=== PATIENT | male | born 1990 | race Caucasian/White ===

== ENCOUNTER 2018-06-27 20:44 | Emergency (ER) | payer MEDICAID ==
[~2018-06-27] VITALS: Ht 660.3 cm; Wt 81.0 kg
[~2018-06-27 20:44] MED LIST: ALBU6.7H INH; HYDR1TAB PO; NORCO10T PO; ONDA4TAB59 PO; OXYC-658 PO; VAL5T PO
[2018-06-27] MEDS ORDERED: penicillin V potassium 500mg tablet PO ONE (22:20)
[2018-06-27] MEDS ORDERED: PENI500T2 PO (22:20)
[2018-06-27 22:26] VITALS: BP 131/66
== END 2018-06-27 22:27 | disposition home or self-care (01) ==
LOC: ER 20:44
DX: J02.9 Acute pharyngitis, unspecified (principal); G89.29 Other chronic pain; Z79.899 Other long term (current) drug therapy
CPT/HCPCS: 99283

== ENCOUNTER 2018-07-06 11:59 | Emergency (ER) | payer MEDICAID ==
[~2018-07-06] VITALS: Ht 190.5 cm; Wt 90.1 kg
[~2018-07-06 11:59] MED LIST changes: +PENI500T2 PO
[2018-07-06 12:12] VITALS: BP 118/73
== END 2018-07-06 12:31 | disposition home or self-care (01) ==
LOC: ER 12:00
DX: Z00.00 Encounter for general adult medical examination without abnormal findings (principal); G89.29 Other chronic pain; M54.9 Dorsalgia, unspecified
CPT/HCPCS: 99281

== ENCOUNTER 2019-08-22 00:20 | Emergency (ER) | payer MEDICAID, OTHER ==
[~2019-08-22] VITALS: Ht 180.3 cm; Wt 93.0 kg
[~2019-08-22 00:20] MED LIST changes: -ALBU6.7H INH; +ALBU6.7H9 INH; -PENI500T2 PO
[2019-08-22 00:29] VITALS: BP 134/84
[2019-08-22] MEDS ORDERED: ketorolac trometh inj. 60 MG/2 ML VIAL IM ONE (01:00)
== END 2019-08-22 01:38 | disposition home or self-care (01) ==
LOC: ER 00:21
DX: K02.9 Dental caries, unspecified (principal); K03.81 Cracked tooth; Z79.899 Other long term (current) drug therapy
CPT/HCPCS: 96372; 99283; J1885

== ENCOUNTER 2020-08-12 12:10 | Emergency (ER) | payer MEDICAID ==
[~2020-08-12] VITALS: Ht 193 cm; Wt 90.9 kg
[2020-08-12 12:12] VITALS: BP 125/83
[2020-08-12] MEDS ORDERED: DEXA6TAB6 PO (12:57)
[2020-08-12] MEDS ORDERED: AZIT-63 PO (12:57)
== END 2020-08-12 13:15 | disposition home or self-care (01) ==
LOC: ER 12:11
DX: J20.9 Acute bronchitis, unspecified (principal); G89.29 Other chronic pain; M54.9 Dorsalgia, unspecified; J98.01 Acute bronchospasm; Z20.828 Contact with and (suspected) exposure to other viral communicable diseases
CPT/HCPCS: 36415; 87635; 99283; C9803

== ENCOUNTER 2020-12-12 14:43 | Emergency (ER) | payer MEDICAID ==
[~2020-12-12] VITALS: Ht 193 cm; Wt 84.1 kg
[~2020-12-12 14:43] MED LIST changes: +DEXA6TAB6 PO; +DIAZ5TAB22 PO; -VAL5T PO
[2020-12-12 14:54] VITALS: BP 125/78
[2020-12-12] MEDS ORDERED: CefTRIAXone 1000mg IM Kit (w/lidocaine diluent) IM ONE (15:00)
[2020-12-12 15:35] LABS: CLARITY,URINE CLOUDY (Clear); COLOR,URINE YELLOW (Yellow); GLUCOSE, URINE NEGATIVE (Neg); KETONES,URINE NEGATIVE (Neg); LEUKOCYTE ESTERASE ,URINE SMALL (Neg); NITRITES, URINE NEGATIVE (Neg); OCCULT BLOOD,URINE TRACE-INTACT (Neg); PROTEIN,URINE 30 mg/dl (Neg)
[2020-12-12 15:43] LABS: UA COLLECTION TYPE VOIDED
[2020-12-12 15:44] LABS: CAL OXALATE CRYSTALS 4+ /HPF (NEGATIVE); MUCUS STRANDS FEW /LPF (Neg); SQUAMOUS EPITHELIAL CELL,UR FEW /LPF (FEW); WBC,URINE TNTC /HPF (0-4)
[2020-12-12 15:45] LABS: RBC,URINE 0-2 /HPF (0-2)
[2020-12-12 15:46] LABS: BACTERIA,URINE 2+ /HPF (Neg)
[2020-12-12] MEDS ORDERED: DOXY100C76 PO (16:51)
== END 2020-12-12 17:19 | disposition home or self-care (01) ==
LOC: ER 14:44
DX: N39.0 Urinary tract infection, site not specified (principal); G89.29 Other chronic pain; Z86.19 Personal history of other infectious and parasitic diseases; Z79.2 Long term (current) use of antibiotics; Z79.899 Other long term (current) drug therapy
CPT/HCPCS: 76870; 81001; 87088; 93976; 96372; 99284; J0696; 36415; 87491

== ENCOUNTER 2020-12-18 16:10 | Emergency (ER) | payer MEDICAID ==
[~2020-12-18] VITALS: Ht 193 cm; Wt 84.1 kg
[~2020-12-18 16:10] MED LIST changes: +DOXY100C76 PO
[2020-12-18 16:59] VITALS: BP 129/81
[2020-12-18] MEDS ORDERED: ondansetron 4mg rapidly disintigrating tab PO ONE (18:30)
[2020-12-18] MEDS ORDERED: sulfamethoxazole/trimethoprim DS (800/160mg) tablet PO ONE (18:30)
[2020-12-18] MEDS ORDERED: SULF1TAB45 PO (19:25)
== END 2020-12-18 20:06 | disposition home or self-care (01) ==
LOC: ER 16:11
DX: L03.115 Cellulitis of right lower limb (principal); M79.671 Pain in right foot; G89.29 Other chronic pain; Z86.19 Personal history of other infectious and parasitic diseases; Z79.2 Long term (current) use of antibiotics; Z79.899 Other long term (current) drug therapy
CPT/HCPCS: 93971; 99284

== ENCOUNTER 2021-01-24 01:38 | Emergency (ER) | payer MEDICAID, OTHER ==
[~2021-01-24] VITALS: Ht 193 cm; Wt 86.0 kg
[~2021-01-24 01:38] MED LIST changes: -DOXY100C76 PO
[2021-01-24 01:44] VITALS: BP 128/84
[2021-01-24] MEDS ORDERED: azithromycin 250mg tablet PO ONE (02:05)
[2021-01-24] MEDS ORDERED: CefTRIAXone 1000mg IM Kit (w/lidocaine diluent) IM ONE (02:05)
[2021-01-24 02:20] LABS: CLARITY,URINE CLOUDY (Clear); COLOR,URINE YELLOW (Yellow); GLUCOSE, URINE NEGATIVE (Neg); KETONES,URINE NEGATIVE (Neg); LEUKOCYTE ESTERASE ,URINE SMALL (Neg); NITRITES, URINE NEGATIVE (Neg); OCCULT BLOOD,URINE TRACE-INTACT (Neg); PROTEIN,URINE NEGATIVE (Neg); UROBILINOGEN,URINE 0.2 E.U/dL (0.2-1.0)
[2021-01-24 02:24] LABS: UA COLLECTION TYPE VOIDED
[2021-01-24 02:25] LABS: BACTERIA,URINE 1+ /HPF (Neg); RBC,URINE 0-2 /HPF (0-2); SQUAMOUS EPITHELIAL CELL,UR FEW /LPF (FEW); WBC,URINE TNTC /HPF (0-4)
[2021-01-24 02:26] LABS: MUCUS STRANDS FEW /LPF (Neg); WBC CLUMPS,URINE MODERATE /HPF (NEGATIVE)
== END 2021-01-24 03:04 | disposition home or self-care (01) ==
LOC: ER 01:39
DX: Z11.3 Encounter for screening for infections with a predominantly sexual mode of transmission (principal); N48.89 Other specified disorders of penis; R30.0 Dysuria; G89.29 Other chronic pain; F17.200 Nicotine dependence, unspecified, uncomplicated; Z86.19 Personal history of other infectious and parasitic diseases; Z79.899 Other long term (current) drug therapy
CPT/HCPCS: 36415; 81001; 87088; 87491; 87591; 96372; 99283; J0696

== ENCOUNTER 2021-03-24 03:56 | Emergency (ER) | payer SELFPAY ==
[~2021-03-24] VITALS: Ht 193 cm; Wt 90.9 kg
[2021-03-24 04:01] VITALS: BP 132/85
[2021-03-24] MEDS ORDERED: SULF1TAB49 PO (05:02)
[2021-03-24] MEDS ORDERED: sulfamethoxazole/trimethoprim DS (800/160mg) tablet PO ONE (05:05)
== END 2021-03-24 05:15 | disposition home or self-care (01) ==
LOC: ER 03:56
DX: J34.0 Abscess, furuncle and carbuncle of nose (principal); G89.29 Other chronic pain; Z86.19 Personal history of other infectious and parasitic diseases; Z79.899 Other long term (current) drug therapy
CPT/HCPCS: 99283

== ENCOUNTER 2023-06-03 10:51 | Emergency (ER) | payer MEDICAID ==
[~2023-06-03] VITALS: Ht 193 cm; Wt 90.0 kg
[~2023-06-03 10:51] MED LIST changes: +ALBU6.7H14 INH; -ALBU6.7H9 INH
[2023-06-03 11:00] VITALS: BP 118/88; PULSE 91; RESP 18; TEMP 97.8; O2SAT 96
== END 2023-06-03 13:53 | disposition left against medical advice (07) ==
LOC: ER 10:51
DX: R21 Rash and other nonspecific skin eruption (principal); Z53.21 Procedure and treatment not carried out due to patient leaving prior to being seen by health care provider
CPT/HCPCS: 99281